=== PATIENT | male | born 1975 | race Caucasian/White ===

== ENCOUNTER 2020-12-13 18:23 | Emergency (ER) | payer OTHER, SELFPAY ==
[2020-12-13 19:41] VITALS: BP 179/108; PULSE 97; RESP 18; O2SAT 97; BMI 37.2
--- NOTE | 2020-12-14 02:29 | W.ED.WOUNDLC ---
HPI - Wound/Laceration General: Chief Complaint: Wound/Laceration Stated Complaint: RUE LAC/FELL FROM TRAILER LANDED ON METAL Time Seen by Provider: 12/14/20 01:58 History of Present Illness: HPI narrative: Right elbow laceration, fell through trailer floor, incident occurred about 2 hours prior to arrival to the ER. Patient's tetanus was not up-to-date. Patient appears well. Patient reports tenderness in the area. Review of Systems General: Reports: 10 or more systems reviewed and unremarkable except in HPI and below Musc: Reports: other (Laceration to the right elbow.) Physical Exam Const: COMMON NORMALS: no acute distress and patient oriented x3 GENERAL APPEARANCE: cooperative HENMT: COMMON NORMALS: normocephalic and Normal external nose present HEAD & SCALP: normal to inspection and normocephalic NOSE: Normal external nose present Neck/C-Spine: COMMON NORMALS: full ROM Chest: COMMONS NORMALS: normal inspection of the chest Resp: COMMON NORMALS: normal respiratory effort EFFORT & INSPECTION: Yes able to speak in complete sentences Cardio: COMMON NORMALS: regular rate and regular rhythm RATE: regular rate RHYTHM: regular rhythm GI: COMMON NORMALS: non-tender Extremity: COMMON NORMALS: normal to inspection NARRATIVE EXTREMITY EXAM: 5 cm laceration to the posterior right elbow area. Neuro: COMMON NORMALS: patient oriented x3 and moves all extremities Psych: COMMON NORMALS: mental status grossly normal and cooperative Skin: COMMON NORMALS: no rashes or lesions noted GENERAL SKIN EXAM: no rashes or lesions noted Procedures Laceration Laceration 1: Site: upper extremity (Right elbow) Side (If applicable): right Size (cm): 5 Description: linear Depth: simple, single layer Local Anesthetic: lidocaine 1% Amount of anesthesia used (mL): 8 Pre-repair: wound explored Skin layer closed with: nylon Size (cm): 3-0 Number of sutures: 3 Technique: horizontal mattress Course Vital Signs: Vital signs: Vital Signs Pulse Rate 97 12/13/20 19:41 Respiratory Rate 18 12/13/20 19:41 Blood Pressure 179/108 12/13/20 19:41 Pulse Oximetry 97 12/13/20 19:41 MDM - Wound/Laceration MDM Narrative: Medical decision making narrative: Patient came in today for complaints of injury to the right elbow. On exam patient had a 5 cm laceration to the posterior right elbow. Patient good range of motion, tenderness to the elbow. Differential diagnosis includes foreign body, fracture, laceration. Examination of the wound noted no foreign body or underlying fracture. X-ray was ordered but patient left after sutures before x-ray was completed. Patient was given clindamycin for coverage of infection due to the prolonged time before closure. Patient was updated on his tetanus. Reviewed recommendations for follow-up and need for sutures out in 6 days. Patient and his spouse both reported understanding. Discharge Plan Discharge Patient Disposition: Home Clinical Impression: Need for tetanus booster Elbow laceration Qualifiers: Encounter type: initial encounter Laterality: right Qualified Code(s): S51.011A - Laceration without foreign body of right elbow, initial encounter Condition: Stable Prescriptions: New clindamycin HCl 300 mg capsule 300 mg PO BID 7 Days Qty: 14 RF: 0 Discharge Orders: Discharge ED (Routine); Ordered 12/14/20 Ordered By: Fred Hughes Discharge Diet: Usual diet Discharge Activity: Increase activity as tolerated Patient Instructions: Suture Care (ED), Opioid Safety Activity Restrictions/Additional Instructions: Keep wounds clean and dry for the next 2 days, after that you can clean with mild soap and water, apply clean dressing to protect wound. Sutures remove in 10-14 days. Take antibiotic as directed. Follow-up with primary care for recheck in one week. 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
[2020-12-14] MEDS: clindamycin 150 mg Capsule 300 MG PO (02:35)
[2020-12-14] MEDS: tetanus-dipt-pertussis 0.5 mL SDV IM (02:36)
[2020-12-14 02:42] VITALS: RESP 16
== END 2020-12-14 02:43 | disposition home or self-care (01) ==
PROVIDERS: Emergency Provider Nurse Practitioner Family
DX: S51.011A Laceration without foreign body of right elbow, initial encounter (principal); Z23 Encounter for immunization; W13.3XXA Fall through floor, initial encounter
CPT/HCPCS: 12002; 90471; 90715; 99283

== ENCOUNTER 2022-03-02 20:10 | Emergency (ER) | payer OTHER, SELFPAY ==
--- NOTE | 2022-03-02 | XRR_ITS ---
PROCEDURE INFORMATION: Exam: XR Left Hand Exam date and time: 03/02/2022 9:07 PM Age: 47 years old Clinical indication: Injury or trauma; Other: Laceration; Hand; Left TECHNIQUE: Imaging protocol: Radiologic exam of the Left hand. Views: 3 or more views. COMPARISON: No relevant prior studies available. FINDINGS: Limitations: Study is limited by portable technique. Study is somewhat limited due to positioning. Bones/joints: No fracture is identified. Soft tissues: There is soft tissue swelling especially involving the palm of the hand. There is a metallic foreign body seen adjacent to the midshaft of the 1st metacarpal and another small metallic foreign body in the middle finger adjacent to the middle phalanx. These are of uncertain etiology and duration. There is also small metallic foreign body seen in the distal forearm adjacent to the ulna. XR/XR hand LT min 3V* [id number] IMPRESSION: 1. Multiple metallic foreign bodies as described of uncertain etiology 2. No specific bone abnormality.
[2022-03-02 20:41] VITALS: BP 185/98; PULSE 83; RESP 20; TEMP 36.7; O2SAT 94; BMI 34.2
--- NOTE | 2022-03-02 20:56 | W.ED.EXTPRO ---
HPI - Extremity Problem General: Chief complaint: Extremity Injury, Upper Stated complaint: left hand lac Time Seen by Provider: 03/02/22 20:49 Source: patient Mode of arrival: ambulatory Limitations: no limitations History of Present Illness: 47-year-old male states that he was unloading a lawnmower off of a ramp got his thumb caught between the lawnmower and the ramp his laceration the base of his left thumb states pain is minimal he has full range of motion of that thumb bleeding controlled at this time denies any injuries last tetanus was 2 years ago. Associated symptoms: Deny chest pain, fever(s) or rash Review of Systems Const: Denies: fever(s), chills, body aches or change in appetite Eyes: Denies: blurry vision or eye discomfort ENMT: Denies: throat pain or dental pain Card: Denies: chest pain Resp: Denies: dyspnea GI: Denies: abdominal pain, nausea, vomiting or diarrhea : Denies: dysuria Musc: Reports: extremity pain; Denies: neck pain or back pain Skin/Breast: Denies: rash Neuro: Denies: headache(s) Psych: Denies: depression Sunday/Lymph: Denies: easy bruising All/Imm: Denies: urticaria PFSH ED PFSH: Medical History (Updated 03/02/22 @ 21:30 by Zaire Garnett MD) No pertinent past medical history Social History (Updated 03/02/22 @ 20:57 by Zaire Garnett MD) Substance/Drug Use: never Physical Exam Const: COMMON NORMALS: no acute distress, patient oriented x3 and healthy appearing HENMT: COMMON NORMALS: normocephalic and atraumatic HEAD & SCALP: normocephalic and atraumatic Eye: COMMON NORMALS: Equal, round and reactive pupils present and EOMs intact bilaterally PUPIL: Yes Equal, round and reactive pupils present Neck/C-Spine: COMMON NORMALS: full ROM and supple Chest: COMMONS NORMALS: normal inspection of the chest and normal palpation of entire chest wall Resp: COMMON NORMALS: normal respiratory effort, No retractions, No use of accessory muscles and clear to auscultation bilaterally AUSCULTATION: clear to auscultation bilaterally Cardio: COMMON NORMALS: regular rate, regular rhythm and No murmurs present (Cardio) RATE: regular rate RHYTHM: regular rhythm GI: COMMON NORMALS: Normal to inspection, nondistended, normoactive bowel sounds present, Soft to palpation, non-tender and no masses PALPATION: Yes Soft to palpation Extremity: COMMON NORMALS: full ROM NARRATIVE EXTREMITY EXAM: 4cm laceration to base of left thumb full rom no tendon involvement Neuro: COMMON NORMALS: patient oriented x3, moves all extremities and no focal motor deficits Psych: COMMON NORMALS: mental status grossly normal, Normal thought process present and cooperative THOUGHT PROCESS: Normal thought process present Skin: COMMON NORMALS: no rashes or lesions noted and no wounds GENERAL SKIN EXAM: no rashes or lesions noted Procedures Laceration Laceration 1: Site: hand Side (If applicable): left Size (cm): 3 Description: linear Depth: simple, single layer and involves tendon (patial) Local Anesthetic: lidocaine 1% Amount of anesthesia used (mL): 10 Pre-repair: wound explored and irrigated extensively Skin layer closed with: nylon Size (cm): 5-0 Number of sutures: 7 Technique: simple, interrupted Course Vital Signs: Vital signs: Vital Signs Temperature 98.0 F 03/02/22 21:04 Pulse Rate 83 03/02/22 21:04 Respiratory Rate 20 H 03/02/22 21:04 Blood Pressure 185/98 03/02/22 21:04 Pulse Oximetry 94 03/02/22 21:04 Oxygen Delivery Me thod 03/02/22 21:04 MDM - Extremity (Nontraumatic) Medical Decision Making Patient presents with a thumb laceration left thumb home for the exam of the laceration name has a very small partial tendon laceration to the extensor tendon he has no loss of strength on his exam we will place in a thumb spica and have follow-up with orthopedics he is to have sutures removed in 7 days. Discharge Plan Discharge Patient Disposition: Home Clinical Impression: Tendon laceration Laceration of thumb Qualifiers: Encounter type: initial encounter Damage to nail status: without damage Foreign body presence: without foreign body Laterality: left Qualified Code(s): S61.012A - Laceration without foreign body of left thumb without damage to nail, initial encounter Discharge Orders: Discharge ED (Routine); Ordered 03/02/22 Ordered By: Zaire Garnett Discharge Diet: Advance as tolerated Discharge Activity: Resume usual activity Patient Instructions: Care For Your Stitches (ED), Laceration (ED) Activity Restrictions/Additional Instructions: suture removal in 7 days Coding 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
[2022-03-02 21:04] VITALS: BP 185/98; PULSE 83; RESP 20; TEMP 36.7; O2SAT 94
[2022-03-02 21:44] VITALS: BP 170/89; PULSE 83; RESP 20; TEMP 36.7; O2SAT 95
--- NOTE | 2022-03-03 12:47 | DCPLANNER ---
Addendum entered by Milli Andrade 03/10/22 08:02: senior clinical project manager received the following message from the ortho clinic regarding follow up appointment: left vm/mailed letter Original Note: senior clinical project manager had message to schedule a follow up appointment for patient with ortho. senior clinical project manager sent patients information to the front office staff at ortho. Patients information will be printed and reviewed. Clinic will call patient with appointment information.
== END 2022-03-02 21:48 | disposition home or self-care (01) ==
PROVIDERS: Emergency Provider Emergency Medicine
DX: S61.012A Laceration without foreign body of left thumb without damage to nail, initial encounter (principal); S56.322A Laceration of extensor or abductor muscles, fascia and tendons of left thumb at forearm level, initial encounter; W23.0XXA Caught, crushed, jammed, or pinched between moving objects, initial encounter
CPT/HCPCS: 12002; 73130; 99283; A4590